=== PATIENT | female | born 1975 | race American Indian/Alaskan Native ===

== ENCOUNTER 2016-08-29 11:38 | Day surgery (SDC) | payer OTHER ==
--- NOTE | 2016-08-29 14:54 | Ultrasound Report ---
ULTRASOUND BIOPSY THYROID History: Goiter, thyroid nodule. Description of procedure: This is a very difficult examination due to the patient's continual tremor. The patient was unable to remain still. It was decided to biopsy only the dominant 3.4 cm nodule at the inferior pole of the left thyroid lobe. Using ultrasound guidance, 3 fine needle aspirations were obtained. The samples were deemed adequate although borderline by the pathologist. The second nodule could not be biopsied secondary to its smaller size and close proximity to the common carotid artery. Impression: Successful ultrasound-guided fine needle aspiration of the dominant nodule in the inferior pole of the left thyroid lobe. See above please.
--- NOTE | 2016-08-29 15:03 | Short Stay Summary ---
Short Stay Documentation Date of service: 08/29/16 Narrative H&P: thyroid nodule - History Principal diagnosis: thyroid nodule H&P: obtained from office - Allergies and Medications Current Medications: Allergies No Known Allergies Allergy (Verified 08/29/16 12:00) Home Medications Medication Instructions Recorded Confirmed Last Taken Type amLODIPine [Norvasc] 5 mg PO DAILY 08/29/16 08/29/16 08/28/16 History 5mg - Physical exam General appearance: no acute distress - Brief post op/procedure progress note Date of procedure: 08/29/16 Pre-op diagnosis: left thyroid nodules Post-op diagnosis: same Procedure: US thyroid biopsy Anesthesia: local Findings: see report Surgeon: PANTERA BECKFORD Estimated blood loss: none Pathology: list (FNA x 3) Specimen disposition: to lab Condition: stable - Disposition Condition at discharge: Good Disposition: DISCHARGED TO HOME OR SELFCARE Short Stay Discharge Plan Follow up with: TRISHA REHMAN MD [Primary Care Provider] - 7 Days
[2016-08-29 15:14] VITALS: BP 125/81
== END 2016-08-29 15:00 | disposition home or self-care (01) ==
LOC: OPU 11:38 → EDSTATUS 12:00 → OPU 15:00
PROVIDERS: ATTEND Specialist
DX: E04.1 Nontoxic single thyroid nodule (principal); F17.210 Nicotine dependence, cigarettes, uncomplicated
CPT/HCPCS: 60100; 76942; 88112; 88172; 88173; 88305